=== PATIENT | female | born 1965 ===

== ENCOUNTER 2018-10-17 11:04 | Emergency (ER) | payer OTHER ==
[2018-10-17 13:21] VITALS: BP 144/79
--- NOTE | 2018-10-17 14:01 | UC ---
Ear Complaint HPI - HPI Summary HPI Summary: Pt c/o bilateral hearing loss. Pt concerned for cerumen impaction. - History of Current Complaint Chief Complaint: UCEar Stated Complaint: BOTH EARS SORE/UNABLE TO HEAR Time Seen by Provider: 10/17/18 13:29 Hx Obtained From: Patient ?: No Onset/Duration: Gradual Onset, Lasting Days, Still Present Severity Initially: Mild Severity Currently: Moderate Pain Intensity: 0 Aggravating Factors: Nothing Alleviating Factors: Nothing Associated Signs/Symptoms: Positive: Hearing Loss - Allergies/Home Medications Allergies/Adverse Reactions: Allergies Allergy/AdvReac Type Severity Reaction Status Date / Time No Known Allergies Allergy Verified 10/17/18 13:15 Home Medications: Home Medications Aspirin 81 mg CHEW TAB* [Aspirin Low Dose TAB*] 81 mg PO DAILY 10/17/18 [ History Confirmed 10/17/18] Metoprolol Succinate XL TAB* [Toprol XL TAB*] 25 mg PO DAILY 10/17/18 [History Confirmed 10/17/18] Omeprazole CAP (NF) [Prilosec CAP* 20 MG] 20 mg PO DAILY 10/17/18 [History Confirmed 10/17/18] Simvastatin 20 mg PO DAILY 10/17/18 [History Confirmed 10/17/18] PMH/Surg Hx/FS Hx/Imm Hx Previously Healthy: Yes - Surgical History Surgical History: Yes Surgery Procedure, Year, and Place: cardiac stent. . tonsilectomy - Family History Known Family History: Positive: Cardiac Disease - Social History Occupation: Employed Full-time Lives: With Family Alcohol Use: Occasionally Substance Use Type: None Smoking Status (MU): Never Smoked Tobacco Have You Smoked in the Last Year: No Review of Systems All Other Systems Reviewed And Are Negative: Yes Constitutional: Positive: Negative Skin: Positive: Negative Eyes: Positive: Negative ENT: Positive: Ear Ache - bilateral Respiratory: Positive: Negative Cardiovascular: Positive: Negative Gastrointestinal: Positive: Negative Genitourinary: Positive: Negative Motor: Positive: Negative Neurovascular: Positive: Negative Musculoskeletal: Positive: Negative Neurological: Positive: Negative Psychological: Positive: Negative Is Patient Immunocompromised?: No Physical Exam Triage Information Reviewed: Yes Appearance: Well-Appearing Vital Signs: Initial Vital Signs Temp 97.6 F 10/17/18 13:17 Pulse 58 10/17/18 13:17 Resp 16 10/17/18 13:17 BP 144/79 10/17/18 13:17 Pulse Ox 98 10/17/18 13:17 Vital Signs Reviewed: Yes Eye Exam: Normal ENT: Positive: Other - cerumen bilateral ears Dental Exam: Normal Neck exam: Normal Respiratory: Positive: No respiratory distress Musculoskeletal Exam: Normal Neurological Exam: Normal Psychological Exam: Normal Skin Exam: Normal Ear Complaint Course/Dx - Differential Dx/Diagnosis Differential Diagnosis/HQI/PQRI: Cerumen Impaction, Otitis Media Provider Diagnosis: Excessive cerumen in both ear canals Discharge - Sign-Out/Discharge Documenting (check all that apply): Patient Departure All imaging exams completed and their final reports reviewed: No Studies - Discharge Plan Condition: Stable Disposition: HOME Patient Education Materials: Cerumen Impaction (ED) Referrals: Cameron Amaral PA [Primary Care Provider] - If Needed - Billing Disposition and Condition Condition: STABLE Disposition: Home - Attestation Statements Provider Attestation: Per institutional requirements, I have reviewed the chart, however, I was not consulted specifically or made aware of this patient by the midlevel provider. I did not personally evaluate, interact with , or disposition this patient.
== END 2018-10-17 14:05 | disposition home or self-care (01) ==
LOC: UCCORT 11:04
DX: H61.23 Impacted cerumen, bilateral (principal)
CPT/HCPCS: 69210; 99211; G0463